=== PATIENT | female | born 1980 | race Hispanic/Latino ===

== ENCOUNTER 2018-09-17 05:38 | Day surgery (SDC) | payer OTHER ==
[2018-09-16 17:40] VITALS: BP 92/61
[~2018-09-17] VITALS: Ht 165.1 cm; Wt 78.9 kg
[2018-09-17] VITALS (15 sets, daily range): BP systolic 98–116; BP diastolic 55–75
[~2018-09-17 05:38] MED LIST: AMLO5TAB9 PO; ATOR20TA65 PO; INSU500I SQ; LACT1CAP72 PO; LISI-613 PO; STEGLATRO PO; TRULICITY SQ
[2018-09-17] MEDS ORDERED: SODIUM CHLORIDE 0.9% 1000ML 1,000 ML IV ONE (05:54)
[2018-09-17] MEDS: CEFAZOLIN SODIUM 1 GM VIAL IVP SCH ×2 (06:00→06:45)
[2018-09-17] MEDS ORDERED: LIDOCAINE HCL 1% 20 ML VIAL ONE (06:15)
[2018-09-17] MEDS ORDERED: BUPIVACAINE/PF 0.5% 30ML VIAL ONE (06:15)
[2018-09-17] MEDS ORDERED: MIDAZOLAM HCL 1 MG/ML 2ML VIAL ONE (06:36)
[2018-09-17] MEDS ORDERED: FENTANYL CITRATE PF 50 MCG/1 ML 5ML AMP IV ONE (06:36)
[2018-09-17] MEDS ORDERED: OMEP20CA10 PO (08:10)
[2018-09-17] MEDS ORDERED: DEXT1DRO8 OU (08:16)
[2018-09-17] MEDS ORDERED: DIFL5DRO OU (08:16)
[2018-09-17] MEDS ORDERED: DULA0.75 SQ (08:16)
--- NOTE | 2018-09-17 08:19 | NUR ---
RECEIVE PT RECEIVED FROM PACU VIA BED. PT AWAKE ALERT ORIENTED X3. NO COMPLAINTS MADE. SURGICAL BOOT TO LEFT FOOT IN PLACE, DRESSING TO LEFT FOOT DRY AND INTACT, NO OOZING NOTED. PT ABLE TO MOVE FOOT, SENSATION INTACT LEFT LEG, STATES SHE IS NOT ABLE TO FEEL TOUCH TO LEFT FOOT, NO SWELLING NOTED. CALL [facility] WITHIN REACH, PT WILL CALL BROTHER TO TAKE HER HOME AND FOR INSTRUCTIONS. PT ALSO INSTRUCTED NOT TO PUT ANY WEIGHT ON LEFT LEG/FOOT, STATES SHE HAS CRUTCHES AND WALKER AT HOME.
--- NOTE | 2018-09-17 09:00 | NUR ---
PT IS DISCHARGED, WAITING ON BROTHER.
--- NOTE | 2018-09-17 09:20 | NUR ---
DISCHARGED PT DISCHARGED VIA WHEELCHAIR WITH BROTHER. PT STABLE. NO COMPLAINTS MADE. PT STATED SHE HAS CRUTCHES AND WALKER AT HOME. SHE UNDERSTANDS THAT SHE NEEDS TO CALL DR. CARPIO'S OFFICE EARLY THURSDAY AM FOR APPOINTMENT TIME. BROTHER AND PT VERBALIZED UNDERSTANDING. DRESSING TO LEFT FOOT REMAINS DRY AND INTACT.
== END 2018-09-17 09:20 | disposition home or self-care (01) ==
LOC: DAH 05:38 → SUH 05:38
PROVIDERS: ATTEND Podiatrist
DX: E11.621 Type 2 diabetes mellitus with foot ulcer (principal); I10 Essential (primary) hypertension; E11.40 Type 2 diabetes mellitus with diabetic neuropathy, unspecified; E66.9 Obesity, unspecified; K21.9 Gastro-esophageal reflux disease without esophagitis; F41.9 Anxiety disorder, unspecified; F32.9 Major depressive disorder, single episode, unspecified
CPT/HCPCS: 28112; 82948 ×2; 87070; 87076; 87205; 88304; 88311; A4218; A4649 ×2; A4930; A6446; C1729; J0690; J2250; J3010; J3490; J7030 ×2